=== PATIENT | male | born 1990 | race African-American/Black ===

== ENCOUNTER 2023-06-10 10:37 | Emergency (ER) | payer SELFPAY ==
--- NOTE | ~2023-06-10 | XR_ITS ---
XR shoulder LT min 2V DATE: 06/10/2023 11:05 INDICATION: Left shoulder pain, limited range of motion following wrestling injury TECHNIQUE: 4 views COMPARISON: None FINDINGS: There is a small bony projection at the inferior glenoid region of the left scapula; fractu re is not excluded. Consider CT left shoulder correlation. No other fracture or dislocation is detected. Normal alignment at the acromioclavicular and glenohume ral joints. No periosteal reaction or bone destruction or abnormal soft tissue calcification. IMPRESSION: Cannot exclude small fracture in the inferior glenoid area of the left scapula. Consider CT left shoulder examination Reviewed, dictated and finalized at location A. IMPRESSION: Cannot exclude small fracture in the inferior glenoid area of the l eft scapula. Consider CT left shoulder examination
[2023-06-10 10:46] VITALS: BP 105/64; PULSE 76; RESP 20; TEMP 37.1; O2SAT 100
--- NOTE | 2023-06-10 11:39 | ED.GENADULT ---
HPI - General Adult General Chief complaint: Extremity Injury, Upper Stated complaint: Left shoulder injury Source: patient Mode of arrival: ambulatory Limitations: no limitations History of Present Illness HPI narrative: Patient presents for evaluation of left shoulder pain. He indicates he was wrestling around with friends last night while under the influence of alcohol and injured his left shoulder. He cannot remember specific details related to the mechanism of injury. He now has pain which he rates 8/10 pain in left shoulder and left scapula. Pain is worse with abduction. Denies paresthesias. He right hand dominant. He has not taken any medication to assist with his symptoms. Related Data Home Medications Medication Instructions Recorded Confirmed No Home Medications 06/10/23 06/10/23 Allergies Allergy/AdvReac Type Severity Reaction Status Date / Time No Known Allergies Allergy Verified 06/10/23 10:47 Review of Systems Review of Systems: CONSTITUTIONAL: Denies fever, chills, or sweats. EYES: Denies visual changes, redness, or discharge. ENT: Denies rhinorrhea, congestion, sore throat, or otalgia. CARDIOVASCULAR: Denies chest pain, palpitations, or edema. RESPIRATORY: Denies cough or dyspnea. GASTROINTESTINAL: Denies abdominal pain, nausea, vomiting, or diarrhea. GENITOURINARY: Denies dysuria or hematuria. SKIN: Denies rash or itching. MUSCULOSKELETAL: Reports pain in left shoulder and scapula. NEUROLOGIC: Denies headache, numbness, dizziness, or weakness. PSYCHIATRIC: Denies anxiety or depression. FORMERLY [facility], 1928–1983 Past Medical History Medical History No pertinent past medical history Surgical History Surgical History (Updated 06/10/23 @ 11:41 by DORIS ClayP, ) No pertinent past surgical history Family History Family History Mother No problems noted. Social History Social History Smoking status: Never smoker Alcohol intake: current Alcohol use details: social Substance use: never Living arrangements: with family Gender identity (if verbalized by the patient): Male Sexual Orientation (if Verbalized by the Patient): Straight or Heterosexual Spiritual care concerns: No Exam Narrative: GENERAL: Well-appearing, well-nourished, and in no acute distress. HEAD: Normocephalic, atraumatic. EYES: PERRLA and EOMI. ENT: Nares clear, no rhinorrhea or epistaxis. Mucous membranes moist. Oropharynx without tonsillar hypertrophy exudate or other lesions. Bilateral TMs pearly harrington nonbulging NECK: Supple. No adenopathy or masses. No carotid bruits or JVD CHEST: Clear to auscultation. No respiratory distress. No wheezes rales or rhonchi HEART: Regular rate and rhythm. No murmur heard. Normal peripheral pulses. ABDOMEN: Soft, nontender, nondistended, normal active bowel sounds. EXTREMITIES: No tenderness in the left shoulder left scapula. Decreased range of motion left shoulder. Pain is reproducible with abduction of the left shoulder SKIN: Warm, dry, no rash. NEURO: No focal deficits. Alert and oriented x3. PSYCH: Normal mood and affect. Course Course Emergency Course: This is a 32-year-old male who presented for evaluation of pain in the left scapula and shoulder after an injury last night. There was concern for left scapular fracture and recommendations are for CT imaging. Unfortunately patient does not have insurance so the difficult for him to have this done on an outpatient basis. I contacted [facility] and spoke with Stephanie in the transfer center. She indicated that Dr Huynh would accept pt to ER there. He was given toradol while here and provided with sling. He was updated throughout his stay here and was in agreement with plan of care, including plans for transfer. Level o
[2023-06-10] MEDS: KETOROLAC (*BKC) 60 MG/2 ML VIAL IM (11:42)
== END 2023-06-10 11:47 | disposition short-term general hospital (02) ==
PROVIDERS: Emergency Provider Nurse Practitioner
DX: S49.92XA Unspecified injury of left shoulder and upper arm, initial encounter (principal); T14.90XA Injury, unspecified, initial encounter; Y93.72 Activity, wrestling
CPT/HCPCS: 73030; 96372; 99213; A4565; G0463; J1885